=== PATIENT | male | born 1970 | race Caucasian/White ===

== ENCOUNTER 2016-07-21 07:14 | Inpatient (IN) | payer OTHER ==
[~2016-07-21] VITALS: Ht 180.3 cm; Wt 118.2 kg
[~2016-07-21 07:14] MED LIST: COZ100 PO; GLIP5TAB2 PO; HYG25 PO
[2016-07-21 07:20] VITALS: BP 172/115; PULSE 101; RESP 18; O2SAT 98
--- NOTE | 2016-07-21 07:40 | ED.REPORT ---
HPI-Abd Pain M Under 40 Date of Service July 21, 2016 ED Provider: Mami Seaman MD The patient is a 45 year old male w/ a hx of DM, chronic back pain, peripheral neuropathy, high cholesterol, high blood pressure, who presents to the ED accompanied by his due to diffuse, band-like, upper abdominal pain onset last night. He has been urinating normally but has not had a bowel movement or passed gas for the past 5 days. Associated sx include lower back pain and stomach distension. Last night, the pt went up to go to the bathroom and began to vomit excessively. He denies cough and fever. The pt has an open LNI Case and has had 4 back surgeries. Scheduled to meet with neurosurgeon on the to discuss another back surgery. Nursing Notes Stated Complaint: BACK PAIN/NAUSEA Chief Complaint: Male Abdominal Pain Nursing Notes Reviewed: Yes Allergies: Coded Allergies: No Known Allergies (Unverified , 05/12/13) Scheduled Atorvastatin (Lipitor) 20 Mg Tablet 20 MG PO DAILY Gabapentin (Gabapentin) 600 Mg Tablet 600 MG PO QID Glimepiride (Glimepiride) 2 Mg Tablet 2 MG PO BID Losartan Potassium (Losartan Potassium) 50 Mg Tablet 75 MG PO DAILY Nabumetone (Nabumetone) 500 Mg Tablet 500 MG PO BID Nortriptyline (Nortriptyline) 50 Mg Capsule 50 MG PO HS Scheduled PRN Diazepam (Diazepam) 5 Mg Tablet 5 MG PO q4-6HR PRN PRN For Anxiety Hydrocodone-Acetaminophen 10-325 mg (Hydrocodone-Acetaminophen 10-325 mg) 1 Each Tablet 1 TABLET PO q5HR PRN PRN For Pain General Time Seen by MD: 07:37 Chief Complaint Abdominal pain Hx Obtained From: Patient, Spouse Arrived By: Walk-in Sudden in Onset?: Yes Onset Occurred: 5 - 8 hours ago Symptom Duration: Since onset Location: : Abdomen lower: Abdomen upper Quality: Painful Severity: Current: Moderate Recent Healthcare: No recent doctor visit, No recent hospitalization Similar Sx Previous: No Past Medical History Past Medical History high cholesterol high blood pressure peripheral neuropathy chronic back pain Reports: Diabetes mellitus, Hypertension Past Surgical History 4 back surgeries Smoking History Current Every Day Smoker ("vaporizes") Social History Alcohol Use: 1-3 per day Other Social History: Good social support, , Local resident Ambulatory Status Independent Review of Systems Constitutional: Denies: Fever Respiratory: Denies: Non-productive cough GI: Reports: Abdominal pain, Constipation, Vomiting Male: Denies Urination decreased, Denies Urination increased Musculoskeletal: Reports: Back pain, Denies: Extremity swelling Complete sys rev & neg: except as marked. Physical Exam Initial Vital Signs Vital Signs (First) Date Time Temp Pulse Resp B/P Pulse Ox O2 Delivery O2 Flow Rate FiO2 07/21/16 07:20 37.1 101 18 172/115 98 07/21/16 10:36 Room Air Initial VS: Reviewed Head / Eyes: Atraumatic, Normocephalic, PERRL Neck: Supple, Non-tender Skin: Warm, Dry Neurologic: Alert, Oriented General/Constitutional: Awake, Alert, Cooperative acute distress smells of alcohol Respiratory / Chest: Atraumatic, Breath sounds NL, Breath sounds = bilat, No respiratory distress Cardiovascular: No gallop, No murmurs, No rubs Heart Rate / Rhythm: Positive: Tachycardia Abdomen: No guarding, No rebound Tenderness/Guarding/Rebound: Positive: Tender diffuse distended belly increased tenderness over both upper quadrants Back: Atraumatic, Inspection NL, Full range of motion Lower Extremity / Pelvis / MS: No edema lower extremities well profused Interpretation & Diagnostics Lab Results Interpretation Result Diagram: 07/21/16 0850 07/21/16 0850 Test 07/21/16 08:50 07/21/16 12:25 White Blood Count 14.2th/mm3 (3.8-10.1) Red Blood Count 4.87mil/mm3 (4.40-5.80) Hemoglobin 16.9g/dL (13.8-17.2) Hematocrit 46.0% (41.0-50.0) Mean Corpuscular Volume 94.5fL (81-100) Mean Corpuscular Hemoglobin 34.7pg (27.0-35.0) Mean Corpuscular Hemoglobin Concent 36.7% (32.0-37.0) Red Cell Distribution Width 12.0% (12.3-15.4) Platelet Count 127bil/L (150-400) Neutrophils (%) (Auto) 84.2% (40-74) Lymphocytes (%) (Auto) 6.1% (14-46) Monocytes (%) (Auto) 9.0% (4-12) Eosinophils (%) (Auto) 0.1% (0-5) Basophils (%) (Auto) 0.3% (0-3) Sodium Level 123mEq/L (134-144) Potassium Level 4.1mEq/L (3.5-5.2) Chloride Level 85mEq/L (97-108) Carbon Dioxide Level 22mmol/L (18-29) Blood Urea Nitrogen 10mg/dL (6-24) Creatinine 0.63mg/dL (0.76-1.27) Estimat Glomerular Filtration Rate 148mL/min (>59) Glucose Level 151mg/dL (60-99) Lactic Acid Level 3.3mmol/L (0.4-2.0) Calcium Level 7.7mg/dL (8.5-10.1) Magnesium Level 1.3mg/dL (1.6-2.6) Total Bilirubin 2.6mg/dL (0.0-1.2) Aspartate Amino Transf (AST/SGOT) 170U/L (0-50) Alanine Aminotransferase (ALT/SGPT) 82U/L (0-44) Alkaline Phosphatase 79U/L (25-150) Total Protein 6.0g/dL (6.4-8.4) Albumin 3.2g/dL (3.4-5.0) Lipase 361U/L (13-60) Alcohols 18mg/dL (0-10) Urine Color Yellow (YELLOW) Urine Appearance Clear (CLEAR,HAZY) Urine pH 5.5 (5.0-8.0) Urine Specific [place] 1.010 (1.003-1.035) Urine Protein 30mg/dL (NEG,TRACE) Urine Glucose (UA) Negativemg/dL (NEGATIVE) Urine Ketones Negativemg/dL (NEGATIVE) Urine Occult Blood Trace (NEGATIVE) Urine Nitrite Negative (NEGATIVE) Urine Bilirubin Negative (NEGATIVE) Urine Urobilinogen Normalmg/dL (NORMAL) Urine Leukocyte Esterase Negative (NEGATIVE) Urine RBC 0-2/hpf (0-2) Urine WBC 0-5/hpf (0-5) Urine Epithelial Cells Occasional/hpf (NONE-MOD) Urine Crystals None seen (NONE SEEN) Urine Bacteria None/hpf (NONE-FEW) Urine Hyaline Casts None/lpf (NONE) Urine Granular Casts None seen (NONE SEEN) Urine Waxy Casts None seen (NONE SEEN) Urine Red Blood Cell Casts None seen (NONE SEEN) Urine White Blood Cell Casts None seen (NONE SEEN) Urine Mucus None seen (None Seen) Urine Trichomonas None seen (NONE SEEN) Urine Yeast None (NONE SEEN) Urinalysis Comment None Urine Culture Reflexed Not indicated ECG Interpretation Time: 08:01 Interpreted by: ED physician Normal ECG Interpretation: Normal ECG w/ rate of... (98) X-Ray Abdominal Interpretation IMPRESSION: 1. Nonspecific bowel gas pattern with a paucity of small bowel gas and distended segment of descending colon. If clinical concern persists, recommend further evaluation with CT. Dictated by: Meir Soto M.D. on 07/21/2016 at 9:29 Approved by: Meir Soto M.D. on 07/21/2016 at 9:47 Study: 2 view Interpretation / Wet Read by: Interpret - Radiologist CT Abd / Pelvis Interpretation IMPRESSION: Acute pancreatitis. Recommend clinical/laboratory correlation, and consider followup CT after treatment to exclude the possibility of underlying pancreatic mass, as clinically warranted. No evidence of abscess seen. Hepatic steatosis. Presumed left renal cyst, technically non-specific. Dictated by: Ced Bean M.D. on 07/21/2016 at 10:25 Approved by: Ced Bean M.D. on 07/21/2016 at 10:31 Study type: Abdominal CT no contrast Interpretation / Wet Read by: Interpret - Radiologist Re-Eval/Medical Decision Med Decision/Clinical Course Presents with a week of increasing abdominal pain. Labs and CT scan CONSISTENT with acute pancreatitis. No evidence of gallstones or obstruction. Most likely etiology is his alcohol use. He states that he does drink alcohol and the form of beer and wine daily. He does not need a morning drink. On reexam at noon he is diaphoretic but tremulous likely will have some difficulty with alcohol withdrawal. Discussed with him the need to avoid alcohol to avoid recurrent pancreatitis and he seemed amenable to options and help. Inpatient chemical dependency counselor consultation may be very appropriate. Re-Evaluation/Progress #1: Time of Eval: 09:59 Re-Evaluation/Progress Note: Pt rechecked. Labwork shows evidence of pancreatitis. Re-Evaluation/Progress #2: Time of Eval: 12:07 Re-Evaluation/Progress Note: Pt rechecked. Informed pt of plan for admission due to pancreatitis. He understands and agrees with plan. All questions addressed. Consultation : Referral / Consult Name: Mitchel Weiss DO Consulted With: Hospitalist Call Returned at: 12:58 Fisher Mussel: Agrees with eval, Agrees with plan Note: Case discussed with Dr. Weiss. Counseled Regarding: Diagnosis, Lab results, Need for admission Patient Discharge & Departure Primary Impression: Pancreatitis Chronicity: acute Pancreatitis type: alcohol induced Acute pancreatitis complication: unspecified Qualified Code: K85.20 - Alcohol induced acute pancreatitis without necrosis or infection Additional Impression: Alcoholism Disposition: ADMITTED TO HOSPITAL Discharge Condition All VS Reviewed: Yes Condition: Stable Referrals: Jace Tee MD (PCP) Scribe Attestation Portion of this note were transcribed by Kizzy Liang. I, Dr. Mami Seaman, personally performed the history, physical exam, and medical decision-making: I reviewed and confirmed the accuracy for the information in the transcribed note. Signed by: stephanie Pollock, 07/21/16 1100 copies to: Jace Tee MD, Shawna L MD July 21, 2016 07:40 Kizzy Liang July 21, 2016 07:48
[2016-07-21] MEDS ORDERED: 0.9% Sodium Chloride 1,000 ML IV ONE ×2 (07:51→10:35)
[2016-07-21] MEDS ORDERED: Ondansetron 2 mg/mL 2 mL Inj IVPUSH ONE (07:55)
[2016-07-21] MEDS ORDERED: HYDROmorphone 1 mg/mL Inj IVPUSH ONE (07:55)
[2016-07-21] MEDS ORDERED: Ondansetron 2 mg/mL 2 mL Inj IVPUSH PRN ×2 (07:55→13:40)
[2016-07-21 08:59] LABS: Mean Corpuscular Volume 94.5 fL (81-100)
[2016-07-21 09:02] LABS: BASOPHILS % (AUTO) 0.3 % (0-3); EOSINOPHILS % (AUTO) 0.1 % (0-5); Mean Corpuscular Hemoglobin 34.7 pg (27.0-35.0); NEUTROPHILS % (AUTO) 84.2 % (40-74); Platelet Count 127 bil/L (150-400)
[2016-07-21 09:23] LABS: Magnesium 1.3 mg/dL (1.6-2.6)
--- NOTE | 2016-07-21 09:48 | DRSVH ---
PROCEDURE: X-RAY ACUTE ABDOMINAL SERIES ([id number]) INDICATIONS: severe abdominal pain TECHNIQUE: One view chest and two views of the abdomen were acquired. COMPARISON: None. FINDINGS: Surgical changes and devices: None. Chest: Lungs are clear. Heart size is normal. No pleural effusions. No pneumoperitoneum. Abdomen: Bowel gas pattern demonstrates a paucity of small bowel gas. There is mild segmental gaseo us distention in the descending colon. No bowel air-fluid levels. No suspicious calcifications. Bones: No suspicious bony lesions. IMPRESSION: 1. Nonspecific bowel gas pattern with a paucity of small bowel gas and distended segment of descendi ng colon. If clinical concern persists, recommend further evaluation with CT. Dictated by: Meir Soto M.D. on 07/21/2016 at 9:29 Approved by: Meir Soto M.D. on 07/21/2016 at 9:47
[2016-07-21] MEDS ORDERED: Piperacillin-Tazo 3.375 Gm Inj 3.375 GM in Dextrose 5% Minibag Plus 50 ML IV ONE (09:50)
[2016-07-21] MEDS: HYDROmorphone 1 mg/mL Inj IVPUSH PRN ×2 (10:10→12:38)
--- NOTE | 2016-07-21 10:32 | DRSVH ---
PROCEDURE: CT ABDOMEN AND PELVIS WITH CONTRAST ([id number]) INDICATIONS: pancreatitis, distended belly TECHNIQUE: After the administration of intravenous contrast, 5 mm thick sections acquired from the diaphragm to the symphysis. 5 mm coronal and sagittal reformats were acquired. For radiation dose reduction, the following was used: automated exposure control, adjustment of mA and/or kV according to patient siz e. COMPARISON: None. FINDINGS: Image quality: Excellent. ABDOMEN: Lung bases: Lung bases are clear. Heart size is normal. Solid organs: There is hepatic steatosis, otherwise liver and spleen are normal in size and enhanceme nt. Gallbladder grossly unremarkable. Biliary system is non dilated. There is extensive peripancre atic inflammatory stranding surrounding the head and body of the pancreas. No focal fluid collection or abscess is seen. Heterogeneity of the pancreatic head and uncinate process, which is poorly define d. Small presumed reactive subcentimeter portal caval lymph node. No adrenal nodules. Kidneys demonstrate normal size and enhancement, without hydronephrosis. Nonsp ecific subcentimeter left posterior renal cortical hypodense lesion possibly a cyst although too smal l to characterize definitively Peritoneum and bowel: Bowel loops demonstrate normal wall thickness and caliber. No free fluid or a ir. Normal appendix. Nodes and vessels: No retroperitoneal or mesenteric adenopathy by size criteria. Aorta and inferior vena cava are normal in size. Miscellaneous: No ventral hernias. PELVIS: Genitourinary: Bladder wall thickness is normal. Miscellaneous: No inguinal hernias or adenopathy. Bones: No suspicious bony lesions. No vertebral body compression fractures. IMPRESSION: Acute pancreatitis. Recommend clinical/laboratory correlation, and consider followup CT after treatme nt to exclude the possibility of underlying pancreatic mass, as clinically warranted. No evidence of abscess seen. Hepatic steatosis. Presumed left renal cyst, technically non-specific. Dictated by: Ced Bean M.D. on 07/21/2016 at 10:25 Approved by: Ced Bean M.D. on 07/21/2016 at 10:31
[2016-07-21 10:36] VITALS: BP 165/118; PULSE 113; RESP 20; O2SAT 94
[2016-07-21 12:25] VITALS: BP 144/95; PULSE 118; RESP 14; O2SAT 93
[2016-07-21 13:06] LABS: APPEARANCE,URINE CLEAR (CLEAR,HAZY); COLOR,URINE YELLOW (YELLOW); OCCULT BLOOD,URINE TRACE (NEGATIVE); PH,URINE 5.5 (5.0-8.0); UROBILINOGEN,URINE NORMAL (NORMAL)
[2016-07-21] MEDS ORDERED: NORT50CA PO (13:30)
[2016-07-21] MEDS ORDERED: LOSA50TA37 PO (13:30)
[2016-07-21] MEDS ORDERED: DIAZ5TAB3 PO (13:30)
[2016-07-21] MEDS ORDERED: NABU500T PO (13:30)
[2016-07-21] MEDS ORDERED: HYDR-3740 PO (13:30)
[2016-07-21] MEDS ORDERED: GABA600T2 PO (13:30)
[2016-07-21] MEDS ORDERED: GLIM2TAB2 PO (13:30)
[2016-07-21] MEDS ORDERED: ATOR20TA PO (13:30)
[2016-07-21] MEDS ORDERED: Polyethylene Glycol (PEG) 17 Gm Powder PO PRN (13:40)
[2016-07-21] MEDS ORDERED: Alum-Mag Hydrox-Simeth 30 mL Suspension PO PRN (13:40)
--- NOTE | 2016-07-21 13:55 | PCM.HPMED ---
Subjective Date of Service July 21, 2016 Primary Provider: Admitting Physician: Primary Care Physician: Jace Tee MD Attending Physician: Admit Status: From the Emergency Department Chief Complaint: n/v/abdom pain/back pain History of Present Illness: 45 yo male wiht a sig hx of DM, chronic back pain, HLP, HTN, peripheral neuropathy who p/t ED with adominal pain, n, and vomiting - described as band like across abdomen that began last night. States he had progressive decreased appetite and fatigue over last couple weeks. Believes he also had abdominal pain for last few weeks but it was mixed in with his chronic low back pain - for which she had 4 back surgeries as noted below . Denies f/c/diarrhea/change in diet or GERD/gastritis. no urinary sx, pt does drink reportedly for - 5 drinks/day. Does report a previous history of alcohol dependence for which he quit for approximate 4 years in the past. Current drinking situation has been worsened by the fact that he is home most of the day on disability. Patient also takes diazepam and did not know he was not supposed to drink with his medications well. Denies illicit drug use denies cp/sob. no reported BM x 5 days. pain has been noted in his back as well which has been an ongoing issue that has led to 4 back sx and an ongoing L&I case. a CT in the ER revealed pancreatitis and the pt was treated for his pain and hydrated. Review of Systems: complete ROS unremarkable unless stated in HPI Allergies Coded Allergies: No Known Allergies (Unverified , 05/12/13) Home Medications Glimepiride 2 mg Gabapentin 600 mg 4 times daily Hydrocodone acetaminophen 10-325 mg every 8 hours as needed Nabumetone 500 mg twice daily Diazepam 5 mg every 4-6 hours as needed Nortriptyline 50 mg every evening Losartan 75 mg daily Atorvastatin 20 mg each evening PMH high cholesterol high blood pressure peripheral neuropathy chronic back pain Reports: Diabetes mellitus, Hypertension Surgical History 4 back surgeries R knee sx Family History Paternal grandfather with diabetes Maternal grandfather with cardiomyopathy Social History Hx Alcohol Use: Yes Alcoholic Drinks Per Day: COUPLE GLASSES OF WINE DAY Hx Substance Use: No Smoking Status: Current Every Day Smoker ("vaporizes") Exam Vital Signs Vital Sign - Last Date Time Temp Pulse Resp B/P Pulse Ox O2 Delivery O2 Flow Rate FiO2 07/21/16 12:25 118 14 144/95 93 Room Air 07/21/16 07:20 37.1 Exam Gen.: No acute distress, alert and oriented, lying lateral recumbent, obese HEENT: Normocephalic/atraumatic, pupils equal round react to light and accommodation,EOMI, Anicteric sclera, No mucosal ulcerations Neck: No JVD, lymphadenopathy, no thyromegaly Cardiovascular: No rubs clicks murmurs or gallops, regular and tachycardic Respiratory: Clear to auscultation bilaterally no wheezes rales or rhonchi, good historian effort GI: Distended, tender diffusely, mild guarding, no masses Extremities: No clubbing cyanosis or edema, warm, sensation intact Neurologic, muscle strength 5 out of 5 in upper and lower extremities bilaterally, creatinine nerves II-12 grossly intact, DTRs 2+ at patellar and brachial radialis and bicipital, sensation intact Psych: Mood appropriate, affect appropriate, no tangential thought or speech Lab and Diagnostics Result Diagram: 07/21/16 0850 07/21/16 0850 X-Rays, CTs and MRIs CT abdomen PROCEDURE: CT ABDOMEN AND PELVIS WITH CONTRAST ([id number]) INDICATIONS: pancreatitis, distended belly TECHNIQUE: After the administration of intravenous contrast, 5 mm thick sections acquired from the diaphragm to the symphysis. 5 mm coronal and sagittal reformats were acquired. For radiation dose reduction, the following was used: automated exposure control, adjustment of mA and/or kV according to patient size. COMPARISON: None. FINDINGS: Image quality: Excellent. ABDOMEN: Lung bases: Lung bases are clear. Heart size is normal. Solid organs: There is hepatic steatosis, otherwise liver and spleen are normal in size and enhancement. Gallbladder grossly unremarkable. Biliary system is non dilated. There is extensive peripancreatic inflammatory stranding surrounding the head and body of the pancreas. No focal fluid collection or abscess is seen. Heterogeneity of the pancreatic head and uncinate process, which is poorly defined. Small presumed reactive subcentimeter portal caval lymph node. No adrenal nodules. Kidneys demonstrate normal size and enhancement, without hydronephrosis. Nonspecific subcentimeter left posterior renal cortical hypodense lesion possibly a cyst although too small to characterize definitively Peritoneum and bowel: Bowel loops demonstrate normal wall thickness and caliber. No free fluid or air. Normal appendix. Nodes and vessels: No retroperitoneal or mesenteric adenopathy by size criteria. Aorta and inferior vena cava are normal in size. Miscellaneous: No ventral hernias. PELVIS: Genitourinary: Bladder wall thickness is normal. Miscellaneous: No inguinal hernias or adenopathy. Bones: No suspicious bony lesions. No vertebral body compression fractures. IMPRESSION: Acute pancreatitis. Recommend clinical/laboratory correlation, and consider followup CT after treatment to exclude the possibility of underlying pancreatic mass, as clinically warranted. No evidence of abscess seen. Hepatic steatosis. Presumed left renal cyst, technically non-specific. Dictated by: Ced Bean M.D. on 07/21/2016 at 10:25 Assessment & Plan 45-year-old male with a significant history of alcoholism, diabetes, hypertension and chronic low back pain presenting with nausea, vomiting andabdominal painfound to haveacute pancreatitis on CT imaging Acute pancreatitis, POA -Aggressive IV fluid hydration, clinically patient is still intravascularly depleted after receiving 2 L in the ER -Pain control with morphine IV 2 mg every 2 when necessary with norco PRN, Toradol 30 mg every 8 PRN -Monitor urine output, bowel regimen with MiraLAX when necessaryand senna scheduled -Monitor labs, daily -Social work consult for alcoholism resources -NPO Hyponatremia, present on admission - likely secondary to decreased intake and potomania/alcoholism -Repeat sodium after IV fluids, 2 L RV given in the ER. -IV fluids at 200 per hour for 24 hours Elevated LFTs, present on admission -Like secondary to alcohol use including acute hypomagnesemia which will be replaced Chronic back pain status post 4 surgeries -Continue home regimen of diazepam 5 mg every 4-6 hours -Continue with pain regimen as above including morphine and Toradol -Continue gabapentin 600 mg 4 times daily - Oxygen saturation should be monitored when patient is taking opioids Hypertension/hyperlipidemia -Continue home regimen of losartan 75 mg daily - Continue home regimen of atorvastatin 20 mg each evening Diabetes mellitus -Hold home regimen of Clement Bright 2 mg for now -Sliding scale, hypoglycemic protocol, every before meals at bedtime sugar checks -NPO for now in patient admission, given patient will be here for greater than 2 midnights Pain Evaluation: Adequate Pain Control GI Prophylaxis: Proton Pump Inhibitor VTE Prophylaxis: Sub-Q Enoxaparin Resuscitation Status: CPR: Attempt Resuscitation Time spent 45 minutes spent with evaluation and managementconcluding admission, greater than 50% of time was spent in wecu-uw-shoa counseling Mitchel Weiss DO July 21, 2016 12:58
[2016-07-21] MEDS: 0.9% Sodium Chloride 1,000 ML IV SCH ×2 (14:31→20:44)
--- NOTE | 2016-07-21 14:50 | NUR ---
New admit Patient arrived at [facility] approx 1430. BP 132/91, pulse 130, Temp 100.0, Oxygen 95% RA. Paged Dr Perez and new orders," PO medications Ok with sips of water, Blood cultures if not done in the ER, blood cultures if fever spikes more than 100.4, Telemetry on, start CIWA. Hospitalist aware that pulse 130 and temp 100.0. pain 5/10 abdomen and back. PRN pain management for pain.
[2016-07-21 14:55] VITALS: BP 132/91; PULSE 130; RESP 16; O2SAT 95
[2016-07-21 15:05] VITALS: PULSE 131
--- NOTE | 2016-07-21 16:49 | NUR ---
Pain Morphine given 1mg for pain 5/10 to abdomen and back pain with Ineffective pain control. per patient Dilaudid has worked better in the ER. Rajeev paged Dr. Weiss and awaiting response back.
[2016-07-21] MEDS: HYDROcodone-APAP 5-325 mg Tablet PO PRN (17:32)
--- NOTE | 2016-07-21 17:39 | NUR ---
Abdomen/back pain PRN PO Hydrocodone given as ordered. will reassess pain. Patient requires effective pain management. paged Dr. Weiss, awaiting call back.
[2016-07-21] MEDS ORDERED: [UNRECOGNIZED DRUG - OTHER] IV ONE (17:50)
[2016-07-21] MEDS ORDERED: MAGNESIUM SULF IV ONE (17:50)
[2016-07-21] MEDS ORDERED: Glucose 40% Oral Gel 15 Gm Tube PO PRN (17:50)
[2016-07-21] MEDS: Insulin LISPRO 300 Unit/3 mL Inj SUBQ SCH ×2 (18:23→21:04)
--- NOTE | 2016-07-21 18:33 | NUR ---
New orders New orders Ketoroloc for pain. PRN given as ordered with effective pain control. patient able to rest comfortably.
--- NOTE | 2016-07-21 18:49 | NUR ---
patient received Scheduled Senna for constipation. Addendum: 07/21/16 at 1851 by MOODY ROSSI RN Amended: Links added.
--- NOTE | 2016-07-21 18:50 | NUR ---
NPO r/t Acute pancreatitis. Addendum: 07/21/16 at 1851 by MOODY ROSSI RN Amended: Links added.
[2016-07-21 20:00] VITALS: BP 137/85; PULSE 120; RESP 17; O2SAT 96
[2016-07-21] MEDS: Famotidine Inj 20 MG in IV Premix 1 EACH IV SCH (20:44)
[2016-07-22] VITALS (8 sets, daily range): BP systolic 136–156; BP diastolic 79–96; PULSE 85–122; RESP 16–20; O2SAT 95–99
[2016-07-22] MEDS: 0.9% Sodium Chloride 1,000 ML IV SCH ×3 (00:44→22:17)
--- NOTE | 2016-07-22 04:20 | NUR ---
Pain/Nausea/Constipation/Fever Pt. Alert and responsive, administered prn pain and nausea medications upon pt. request with effective results, pt. received scheduled senna for constipation and had a large BM this shift, vitals stable, afebrile, latest Temp. @ 430 am was 36.8, no tremors noted, ambulated independently in with steady gait, uses call light appropriately, hourly checks, will continue to monitor condition status and follow current plan of care.
[2016-07-22] MEDS: HYDROcodone-APAP 5-325 mg Tablet PO PRN ×3 (05:35→16:58)
[2016-07-22 06:47] LABS: BASOPHILS % (AUTO) 0.1 % (0-3); EOSINOPHILS % (AUTO) 0.3 % (0-5); MONOCYTES % (AUTO) 7.7 % (4-12); Mean Corpuscular Hemoglobin 34.2 pg (27.0-35.0); Mean Corpuscular Volume 97.1 fL (81-100); NEUTROPHILS % (AUTO) 86.9 % (40-74); Platelet Count 105 bil/L (150-400)
[2016-07-22 07:37] LABS: Magnesium 2.1 mg/dL (1.6-2.6)
[2016-07-22] MEDS: Famotidine Inj 20 MG in IV Premix 1 EACH IV SCH ×2 (09:07→19:50)
[2016-07-22] MEDS: Insulin LISPRO 300 Unit/3 mL Inj SUBQ SCH ×4 (09:11→22:00)
--- NOTE | 2016-07-22 14:28 | PCM.PNMED ---
Subjective Date of Service July 22, 2016 Subjective He is seen today to followup the Alcoholic Pancreatitis. He is feeling much better but is spiking a fever up to 38.3 this morning. He is hungry but is easily persuaded to rest his pancreas until tomorrow. As he puts it, "I have reserve." The Na continues low at 123. The abdominal pain is improved. Exam Vital Signs Vital Sign - Last Date Time Temp Pulse Resp B/P Pulse Ox O2 Delivery O2 Flow Rate FiO2 07/22/16 11:51 38.3 106 20 149/96 96 Room Air Intake and Output 07/21/16 07/21/16 07/22/16 Cumulative From/Thru 15:00 23:00 07:00 07/21/16 07:20 - 07/22/16 05:42 Intake Total 2000 ml 739 ml 2097 ml 4836 ml Balance 2000 ml 739 ml 2097 ml 4836 ml Intake Oral 30 ml 30 ml IV Total 2000 ml 739 ml 2067 ml 4806 ml # Voids 5 5 # Bowel Movements 1 1 Exam Alert and oriented X 3 Heart: RRR without murmur Lungs: CTAB Ext: No ankle edema Abdomen: Soft, bowel sounds normal, mild diffuse tenderness. IVs and Medications Medications Reviewed: Medications were reviewed in detail Lab and Diagnostics Result Diagram: 07/22/1661407/22/16614 X-Rays, CTs and MRIs CT abdomen PROCEDURE: CT ABDOMEN AND PELVIS WITH CONTRAST (PNL-7102) INDICATIONS: pancreatitis, distended belly TECHNIQUE: After the administration of intravenous contrast, 5 mm thick sections acquired from the diaphragm to the symphysis. 5 mm coronal and sagittal reformats were acquired. For radiation dose reduction, the following was used: automated exposure control, adjustment of mA and/or kV according to patient size. COMPARISON: None. FINDINGS: Image quality: Excellent. ABDOMEN: Lung bases: Lung bases are clear. Heart size is normal. Solid organs: There is hepatic steatosis, otherwise liver and spleen are normal in size and enhancement. Gallbladder grossly unremarkable. Biliary system is non dilated. There is extensive peripancreatic inflammatory stranding surrounding the head and body of the pancreas. No focal fluid collection or abscess is seen. Heterogeneity of the pancreatic head and uncinate process, which is poorly defined. Small presumed reactive subcentimeter portal caval lymph node. No adrenal nodules. Kidneys demonstrate normal size and enhancement, without hydronephrosis. Nonspecific subcentimeter left posterior renal cortical hypodense lesion possibly a cyst although too small to characterize definitively Peritoneum and bowel: Bowel loops demonstrate normal wall thickness and caliber. No free fluid or air. Normal appendix. Nodes and vessels: No retroperitoneal or mesenteric adenopathy by size criteria. Aorta and inferior vena cava are normal in size. Miscellaneous: No ventral hernias. PELVIS: Genitourinary: Bladder wall thickness is normal. Miscellaneous: No inguinal hernias or adenopathy. Bones: No suspicious bony lesions. No vertebral body compression fractures. IMPRESSION: Acute pancreatitis. Recommend clinical/laboratory correlation, and consider followup CT after treatment to exclude the possibility of underlying pancreatic mass, as clinically warranted. No evidence of abscess seen. Hepatic steatosis. Presumed left renal cyst, technically non-specific. Dictated by: Ced Bean M.D. on 07/21/2016 at 10:25 Assessment & Plan 45-year-old male with a significant history of alcoholism, diabetes, hypertension and chronic low back pain presenting with nausea, vomiting andabdominal painfound to haveacute pancreatitis on CT imaging Acute pancreatitis, POA -Continue IVF at maintenance rates. -Pain control with morphine IV 2 mg every 2 when necessary with norco PRN, Toradol 30 mg every 8 PRN -Monitor urine output, bowel regimen with MiraLAX when necessaryand senna scheduled -Monitor labs, daily -Social work consult for alcoholism resources -NPO Hyponatremia, present on admission - likely secondary to decreased intake and potomania/alcoholism -Continue NS IVF and follow Na levels Elevated LFTs, present on admission -Like secondary to alcohol use including acute hypomagnesemia which will be replaced Chronic back pain status post 4 surgeries -Continue home regimen of diazepam 5 mg every 4-6 hours -Continue with pain regimen as above including morphine and Toradol -Continue gabapentin 600 mg 4 times daily - Oxygen saturation should be monitored when patient is taking opioids Hypertension/hyperlipidemia -Continue home regimen of losartan 75 mg daily - Continue home regimen of atorvastatin 20 mg each evening Diabetes mellitus -Hold home regimen of Clement Bright 2 mg for now -Sliding scale, hypoglycemic protocol, every before meals at bedtime sugar checks -NPO for now Watch fevers, WBC and symptoms closely. Consult GI if improving trends do not progress as expected. Brannon Major MD GI Prophylaxis: Proton Pump Inhibitor VTE Prophylaxis: Sub-Q Enoxaparin Resuscitation Status: CPR: Attempt Resuscitation Lucille Major MD July 22, 2016 11:56
--- NOTE | 2016-07-22 15:40 | NUR ---
Social Work Note: Screen Note Data& Assessment: EMR reviewed. Patient is a 45 year old male admitted on 07/21/16 for Acute pancreatitis. Pt has [employer] and [facility] insurance for insurance coverage and sees Jace Tee MD for primary care. Pt lives with family and is independent at baseline. Pt is currently independent at hospital. No discharge needs identified at this time. SW to continue to follow if any needs arise. Plan: Anticipated discharge home via POV when medically ready. No discharge needs identified at this time. SW to continue to follow if any needs arise. Mitzy Major, GRACIELA, ACM
--- NOTE | 2016-07-22 17:44 | NUR ---
Pain, mobility, temp Pt c/o pain starting on the right side of the abdomen banding across the top to the left side. As the shift progressed state felt some air bubbles moving. Reports pain much better in the after. Toradol and norco effective for pain. States morphine helpful for a short while then causes a headache. Ice pack provided per request. Pt amb in [facility] x3 today indep, steady on feet. 1144 had temp 38.3, Dr Major notified, no new orders.
[2016-07-23 02:12] VITALS: BP 138/79; PULSE 96; RESP 18; O2SAT 95
[2016-07-23] MEDS: HYDROcodone-APAP 5-325 mg Tablet PO PRN (03:21)
--- NOTE | 2016-07-23 04:01 | NUR ---
Shift Note Pt. pain managed by prn norco and ketorolac, tolerated well. Denies CP and SOB, On telemetry ST 103, ambulated ind. in rm, uses call light appropriately, Pt. temp. has been closely monitored, highest temp of 38.0, latest temp @ 4am 37.5, MD aware of pt. temp., given ice pack upon request, denies HODGES/dizziness/N/V at this time, will continue to monitor vitals and pain management needs.
[2016-07-23] MEDS: 0.9% Sodium Chloride 1,000 ML IV SCH (05:14)
[2016-07-23 05:23] VITALS: PULSE 96
[2016-07-23 05:32] VITALS: BP 150/89; PULSE 101; RESP 18; O2SAT 95
[2016-07-23 07:47] VITALS: PULSE 102
[2016-07-23] MEDS: Insulin LISPRO 300 Unit/3 mL Inj SUBQ SCH ×2 (08:00→12:20)
[2016-07-23 08:55] LABS: Mean Corpuscular Volume 97.2 fL (81-100)
[2016-07-23 08:56] LABS: BASOPHILS % (AUTO) 0.2 % (0-3); EOSINOPHILS % (AUTO) 0.8 % (0-5); Mean Corpuscular Hemoglobin 33.2 pg (27.0-35.0); NEUTROPHILS % (AUTO) 83.2 % (40-74); Platelet Count 82 bil/L (150-400)
[2016-07-23 08:57] VITALS: BP 152/98; PULSE 84; RESP 15; O2SAT 97
[2016-07-23] MEDS: Famotidine Inj 20 MG in IV Premix 1 EACH IV SCH (09:06)
--- NOTE | 2016-07-23 09:27 | PCM.PNMED ---
Subjective Date of Service July 23, 2016 Subjective He is feeling better, he is less abdominal pain. No nausea, he is starving. No vomiting. No flatus or bowel movement. His abdomen was bloated overnight but now is not. He denies any chest pain, cough or shortness of breath. No withdrawal symptoms. No overnight events Exam Vital Signs Vital Sign - Last Date Time Temp Pulse Resp B/P Pulse Ox O2 Delivery O2 Flow Rate FiO2 07/23/16 08:57 37.2 84 15 152/98 97 Room Air Intake and Output 07/22/16 07/22/16 07/23/16 Cumulative From/Thru 15:00 23:00 07:00 07/21/16 07:20 - 07/23/16 05:32 Intake Total 2037 ml 1193 ml 8066 ml Balance 2037 ml 1193 ml 8066 ml Intake Oral 200 ml 30 ml 260 ml IV Total 1837 ml 1163 ml 7806 ml # Voids 3 3 11 # Bowel Movements 0 0 1 Exam Alert and oriented -3, no distress. Fluent speech Anicteric sclera. Lungs are clear with normal rate and effort Heart is regular without murmur gallop or rub Abdomen soft nontender, flat. No tenderness to palpation. Extremities are free of edema. Skin is free of rash or lesions. IVs and Medications Medications Reviewed: Medications were reviewed in detail Lab and Diagnostics Result Diagram: 07/23/1644907/23/16 045 X-Rays, CTs and MRIs CT abdomen PROCEDURE: CT ABDOMEN AND PELVIS WITH CONTRAST ([id number]) INDICATIONS: pancreatitis, distended belly TECHNIQUE: After the administration of intravenous contrast, 5 mm thick sections acquired from the diaphragm to the symphysis. 5 mm coronal and sagittal reformats were acquired. For radiation dose reduction, the following was used: automated exposure control, adjustment of mA and/or kV according to patient size. COMPARISON: None. FINDINGS: Image quality: Excellent. ABDOMEN: Lung bases: Lung bases are clear. Heart size is normal. Solid organs: There is hepatic steatosis, otherwise liver and spleen are normal in size and enhancement. Gallbladder grossly unremarkable. Biliary system is non dilated. There is extensive peripancreatic inflammatory stranding surrounding the head and body of the pancreas. No focal fluid collection or abscess is seen. Heterogeneity of the pancreatic head and uncinate process, which is poorly defined. Small presumed reactive subcentimeter portal caval lymph node. No adrenal nodules. Kidneys demonstrate normal size and enhancement, without hydronephrosis. Nonspecific subcentimeter left posterior renal cortical hypodense lesion possibly a cyst although too small to characterize definitively Peritoneum and bowel: Bowel loops demonstrate normal wall thickness and caliber. No free fluid or air. Normal appendix. Nodes and vessels: No retroperitoneal or mesenteric adenopathy by size criteria. Aorta and inferior vena cava are normal in size. Miscellaneous: No ventral hernias. PELVIS: Genitourinary: Bladder wall thickness is normal. Miscellaneous: No inguinal hernias or adenopathy. Bones: No suspicious bony lesions. No vertebral body compression fractures. IMPRESSION: Acute pancreatitis. Recommend clinical/laboratory correlation, and consider followup CT after treatment to exclude the possibility of underlying pancreatic mass, as clinically warranted. No evidence of abscess seen. Hepatic steatosis. Presumed left renal cyst, technically non-specific. Dictated by: Ced Bean M.D. on 07/21/2016 at 10:25 Assessment & Plan 45-year-old male with a significant history of alcoholism, diabetes, hypertension and chronic low back pain presenting with nausea, vomiting andabdominal painfound to haveacute pancreatitis on CT imaging #. Acute pancreatitis, POA. Improving. -Continue IVF at maintenance rates. -Pain control with morphine IV 2 mg every 2 when necessary with norco PRN, Toradol 30 mg every 8 PRN -Monitor urine output, bowel regimen with MiraLAX when necessaryand senna scheduled -Monitor labs, daily -Social work consult for alcoholism resources Will give him a full liquid diet and begin to wean IV pain meds. #. Hyponatremia, present on admission improved. DC IV fluids. #. Elevated LFTs, present on admission. Improved. Alcohol induced hepatitis. #. Chronic back pain status post 4 surgeries -Continue home regimen of diazepam 5 mg every 4-6 hours -Continue with pain regimen as above including morphine and Toradol -Continue gabapentin 600 mg 4 times daily - Oxygen saturation should be monitored when patient is taking opioids #. Essential Hypertension/hyperlipidemia. Both chronic, POA. Stable on current medications. -Continue home regimen of losartan 75 mg daily - Continue home regimen of atorvastatin 20 mg each evening #. Diabetes mellitus 2, POA. Stable. -Hold home regimen of Clement Bright 2 mg for now -Sliding scale, hypoglycemic protocol, every before meals at bedtime sugar checks -NPO for now GI Prophylaxis: Proton Pump Inhibitor VTE Prophylaxis: Sub-Q Enoxaparin Resuscitation Status: CPR: Attempt Resuscitation Mauricio Parnell MD July 23, 2016 09:27
--- NOTE | 2016-07-23 12:36 | PCM.DIMED ---
Discharge Instructions Date of Service July 23, 2016 Dates of Hospitalization July 21, 2016 at 13:06 Discharge Diagnosis Discharge Diagnosis #. Acute pancreatitis, POA. Improving. #. Hyponatremia, improved. #. Elevated LFTs, Improved. #. Chronic back pain #. Essential Hypertension #. Diabetes mellitus 2, Diet No restrictions Activity No restrictions Call your provider Fever or Chills, Other (bowel pain, nausea or vomiting.) Patient Instructions Follow-up Provider: Jace Tee MD Follow-up with PCP in: 1 week Mauricio Parnell MD July 23, 2016 12:36
--- NOTE | 2016-07-23 12:38 | PCM.DC.MED ---
Discharge Summary Date of Service July 23, 2016 Dates of Hospitalization Date of Hospital Admission July 21, 2016 at 13:06 Date of Discharge: July 23, 2016 Providers: Admitting Physician: Mitchel Weiss DO Primary Care Physician: Jace Tee MD Attending Physician: Mitchel Weiss DO Diagnosis at Time of Discharge Diagnosis at Time of Discharge #. Acute pancreatitis, POA. Improving. #. Hyponatremia, improved. #. Elevated LFTs, Improved. #. Chronic back pain #. Essential Hypertension #. Diabetes mellitus 2, Consultations Non- Procedures XRay, CTs & MRIs CT abdomen PROCEDURE: CT ABDOMEN AND PELVIS WITH CONTRAST ([id number]) INDICATIONS: pancreatitis, distended belly TECHNIQUE: After the administration of intravenous contrast, 5 mm thick sections acquired from the diaphragm to the symphysis. 5 mm coronal and sagittal reformats were acquired. For radiation dose reduction, the following was used: automated exposure control, adjustment of mA and/or kV according to patient size. COMPARISON: None. FINDINGS: Image quality: Excellent. ABDOMEN: Lung bases: Lung bases are clear. Heart size is normal. Solid organs: There is hepatic steatosis, otherwise liver and spleen are normal in size and enhancement. Gallbladder grossly unremarkable. Biliary system is non dilated. There is extensive peripancreatic inflammatory stranding surrounding the head and body of the pancreas. No focal fluid collection or abscess is seen. Heterogeneity of the pancreatic head and uncinate process, which is poorly defined. Small presumed reactive subcentimeter portal caval lymph node. No adrenal nodules. Kidneys demonstrate normal size and enhancement, without hydronephrosis. Nonspecific subcentimeter left posterior renal cortical hypodense lesion possibly a cyst although too small to characterize definitively Peritoneum and bowel: Bowel loops demonstrate normal wall thickness and caliber. No free fluid or air. Normal appendix. Nodes and vessels: No retroperitoneal or mesenteric adenopathy by size criteria. Aorta and inferior vena cava are normal in size. Miscellaneous: No ventral hernias. PELVIS: Genitourinary: Bladder wall thickness is normal. Miscellaneous: No inguinal hernias or adenopathy. Bones: No suspicious bony lesions. No vertebral body compression fractures. IMPRESSION: Acute pancreatitis. Recommend clinical/laboratory correlation, and consider followup CT after treatment to exclude the possibility of underlying pancreatic mass, as clinically warranted. No evidence of abscess seen. Hepatic steatosis. Presumed left renal cyst, technically non-specific. Dictated by: Ced Bean M.D. on 07/21/2016 at 10:25 Invasive Procedures Non- Brief History 45 yo male wiht a sig hx of DM, chronic back pain, HLP, HTN, peripheral neuropathy who p/t ED with adominal pain, n, and vomiting - described as band like across abdomen that began last night. States he had progressive decreased appetite and fatigue over last couple weeks. Believes he also had abdominal pain for last few weeks but it was mixed in with his chronic low back pain - for which she had 4 back surgeries as noted below . Denies f/c/diarrhea/change in diet or GERD/gastritis. no urinary sx, pt does drink reportedly for - 5 drinks/day. Does report a previous history of alcohol dependence for which he quit for approximate 4 years in the past. Current drinking situation has been worsened by the fact that he is home most of the day on disability. Patient also takes diazepam and did not know he was not supposed to drink with his medications well. Denies illicit drug use denies cp/sob. no reported BM x 5 days. pain has been noted in his back as well which has been an ongoing issue that has led to 4 back sx and an ongoing L&I case. a CT in the ER revealed pancreatitis and the pt was treated for his pain and hydrated. Hospital Course 45-year-old male with a significant history of alcoholism, diabetes, hypertension and chronic low back pain presenting with nausea, vomiting andabdominal painfound to haveacute pancreatitis on CT imaging #. Acute pancreatitis, POA. Improving. -Continue IVF at maintenance rates. -Pain control with morphine IV 2 mg every 2 when necessary with norco PRN, Toradol 30 mg every 8 PRN -Monitor urine output, bowel regimen with MiraLAX when necessaryand senna scheduled -Monitor labs, daily -Social work consult for alcoholism resources Will give him a full liquid diet and begin to wean IV pain meds This improved with bowel rest and a slow diet advanced. The patient was at or near baseline at the time of admit.. #. Hyponatremia, present on admission improved. This improved with IV fluids. Presumed hypovolemic. #. Elevated LFTs, present on admission. Improved. Alcohol induced hepatitis. This also improved with no further intervention. #. Chronic back pain status post 4 surgeries -Continue home regimen of diazepam 5 mg every 4-6 hours #. Essential Hypertension/hyperlipidemia. Both chronic, POA. Stable on current medications. #. Diabetes mellitus 2, POA. Stable. -Hold home regimen of Clement Bright 2 mg for now -Sliding scale, hypoglycemic protocol, every before meals at bedtime sugar checks -NPO for now Exam Vital Signs (Last) Date Time Temp Pulse Resp B/P Pulse Ox O2 Delivery O2 Flow Rate FiO2 07/23/16 08:57 37.2 84 15 152/98 97 Room Air Exam Patient was seen and examined on the day of discharge Test 07/21/16 08:50 07/21/16 12:25 07/22/16 06:15 07/22/16 14:56 Lactic Acid Level 3.3mmol/L (0.4-2.0) Lipase 361U/L (13-60) Alcohols 18mg/dL (0-10) Urine Color Yellow (YELLOW) Urine Appearance Clear (CLEAR,HAZY) Urine pH 5.5 (5.0-8.0) Urine Specific [place] 1.010 (1.003-1.035) Urine Protein 30mg/dL (NEG,TRACE) Urine Glucose (UA) Negativemg/dL (NEGATIVE) Urine Ketones Negativemg/dL (NEGATIVE) Urine Occult Blood Trace (NEGATIVE) Urine Nitrite Negative (NEGATIVE) Urine Bilirubin Negative (NEGATIVE) Urine Urobilinogen Normalmg/dL (NORMAL) Urine Leukocyte Esterase Negative (NEGATIVE) Urine RBC 0-2/hpf (0-2) Urine WBC 0-5/hpf (0-5) Urine Epithelial Cells Occasional/hpf (NONE-MOD) Urine Crystals None seen (NONE SEEN) Urine Bacteria None/hpf (NONE-FEW) Urine Hyaline Casts None/lpf (NONE) Urine Granular Casts None seen (NONE SEEN) Urine Waxy Casts None seen (NONE SEEN) Urine Red Blood Cell Casts None seen (NONE SEEN) Urine White Blood Cell Casts None seen (NONE SEEN) Urine Mucus None seen (None Seen) Urine Trichomonas None seen (NONE SEEN) Urine Yeast None (NONE SEEN) Urinalysis Comment None Urine Culture Reflexed Not indicated Hemoglobin A1c 7.3% (4.8-5.6) Triglycerides Level 3740mg/dL (0-149) Cholesterol Level 519mg/dL (100-199) LDL Cholesterol, Calculated -262.000mg/dL (0-99) VLDL Cholesterol 748.000mg/dL HDL Cholesterol 33mg/dL (>39) Cholesterol/HDL Ratio 15.73 (0.0-4.4) Total Bilirubin 3.8mg/dL (0.0-1.2) Aspartate Amino Transf (AST/SGOT) 68U/L (0-50) Alanine Aminotransferase (ALT/SGPT) 44U/L (0-44) Alkaline Phosphatase 66U/L (25-150) Total Protein 5.5g/dL (6.4-8.4) Albumin 2.8g/dL (3.4-5.0) Test 07/23/16 04:50 White Blood Count 10.7th/mm3 (3.8-10.1) Red Blood Count 3.92mil/mm3 (4.40-5.80) Hemoglobin 13.0g/dL (13.8-17.2) Hematocrit 38.1% (41.0-50.0) Mean Corpuscular Volume 97.2fL (81-100) Mean Corpuscular Hemoglobin 33.2pg (27.0-35.0) Mean Corpuscular Hemoglobin Concent 34.1% (32.0-37.0) Red Cell Distribution Width 12.0% (12.3-15.4) Platelet Count 82bil/L (150-400) Neutrophils (%) (Auto) 83.2% (40-74) Lymphocytes (%) (Auto) 7.4% (14-46) Monocytes (%) (Auto) 8.0% (4-12) Eosinophils (%) (Auto) 0.8% (0-5) Basophils (%) (Auto) 0.2% (0-3) Sodium Level 129mEq/L (134-144) Potassium Level 3.7mEq/L (3.5-5.2) Chloride Level 95mEq/L (97-108) Carbon Dioxide Level 21mmol/L (18-29) Blood Urea Nitrogen 6mg/dL (6-24) Creatinine 0.64mg/dL (0.76-1.27) Estimat Glomerular Filtration Rate 145mL/min (>59) Glucose Level 142mg/dL (60-99) Calcium Level 7.4mg/dL (8.5-10.1) Magnesium Level 2.0mg/dL (1.6-2.6) Discharge Medications Discharge Medications Atorvastatin (Lipitor) 20 Mg Tablet 20 MG PO DAILY (Reported) Gabapentin (Gabapentin) 600 Mg Tablet 600 MG PO QID (Reported) Glimepiride (Glimepiride) 2 Mg Tablet 2 MG PO BID (Reported) Losartan Potassium (Losartan Potassium) 50 Mg Tablet 75 MG PO DAILY (Reported) Nabumetone (Nabumetone) 500 Mg Tablet 500 MG PO BID (Reported) Nortriptyline (Nortriptyline) 50 Mg Capsule 50 MG PO HS (Reported) As needed Diazepam (Diazepam) 5 Mg Tablet 5 MG PO q4-6HR PRN PRN For Anxiety (Reported) Hydrocodone-Acetaminophen 10-325 mg (Hydrocodone-Acetaminophen 10-325 mg) 1 Each Tablet 1 TABLET PO q5HR PRN PRN For Pain (Reported) Followup Plan Disposition: Home Discharge Diet: No restrictions Discharge Activity: No restrictions Follow-up Provider: Jace Tee MD Follow-up with PCP in: 1 week Time spent 40 minutes Mauricio Parnell MD July 23, 2016 12:38
--- NOTE | 2016-07-23 12:43 | NUR ---
STUDENT NURSE NOTE Pt self-reports bowel movement this AM at approximately 0930.
--- NOTE | 2016-07-23 13:20 | NUR ---
Discharge Patient discharge to home, ambulatory, accompanied by family member via a POV. Denies any nausea, pain or discomfort on discharge. Notes and instructions given and well understood by patient. All belongings were taken home with him.
[2016-07-24] MEDS ORDERED: 0.9% Sodium Chloride 1,000 ML IV SCH (07:00)
== END 2016-07-23 13:15 | disposition home or self-care (01) | DRG 282 ==
LOC: SED 07:14 → MOC 13:06
PROVIDERS: ADMIT Internal Medicine; ATTEND Internal Medicine
DX: K85.20 Alcohol induced acute pancreatitis without necrosis or infection (principal); E87.1 Hypo-osmolality and hyponatremia; K70.10 Alcoholic hepatitis without ascites; E83.42 Hypomagnesemia; I10 Essential (primary) hypertension; E11.9 Type 2 diabetes mellitus without complications; G89.29 Other chronic pain; F10.20 Alcohol dependence, uncomplicated; F17.290 Nicotine dependence, other tobacco product, uncomplicated; E78.5 Hyperlipidemia, unspecified; Z79.84 Long term (current) use of oral hypoglycemic drugs

== ENCOUNTER 2016-07-26 17:56 | Emergency (ER) | payer OTHER ==
[~2016-07-26] VITALS: Ht 180.3 cm; Wt 111.4 kg
[~2016-07-26 17:56] MED LIST changes: +ATOR20TA PO; -COZ100 PO; +DIAZ5TAB3 PO; +GABA600T2 PO; +GLIM2TAB2 PO; -GLIP5TAB2 PO; +HYDR-3740 PO; -HYG25 PO; +LOSA50TA37 PO; +NABU500T PO; +NORT50CA PO
[2016-07-26 18:14] VITALS: BP 153/99; PULSE 110; RESP 20; O2SAT 97
[2016-07-26 18:47] LABS: BASOPHILS % (AUTO) 0.4 % (0-3); EOSINOPHILS % (AUTO) 1.1 % (0-5); MONOCYTES % (AUTO) 18.5 % (4-12); Mean Corpuscular Volume 93.4 fL (81-100); NEUTROPHILS % (AUTO) 65.6 % (40-74); Platelet Count 183 bil/L (150-400)
[2016-07-26 19:07] LABS: Magnesium 2.4 mg/dL (1.6-2.6)
[2016-07-26 20:54] VITALS: BP 146/96; PULSE 98; RESP 18; O2SAT 97
--- NOTE | 2016-07-26 22:02 | ED.REPORT ---
HPI-Abd Pain M 40 and Over Date of Service July 26, 2016 ED Provider: Dr. Woods Pt is a 45 y/o male w/ a hx of HTN, DM, chronic pain, hyperlipidemia, and recent dx and admission for pancreatitis, presenting to the ED c/o abdominal pain onset about 4 days ago. The patient was seen here at [facility] and admitted on July 21 with complaints of abdominal pain after a night of nausea and vomiting and was found to have acute pancreatitis which was thought to be alcohol induced along with hyponatremia and elevated LFTs. Abdominal CT performed during admission was remarkable for acute pancreatitis and hepatic steatosis. His bile duct was not dilated at that time. His total bilirubin was 3.8. He was discharged on July 23 and told to follow-up with his PCP. He went back to his PCP who told him that he appeared jaundiced, he provided a urine sample which was very dark yellow. He has been experiencing decreased appetite which he describes as feeling full after a couple bites of food. He is able to pass gas. He c/o associated constant 100.4 F fever, night sweats. Pt denies chills. He has never experienced pancreatitis associated with alcohol in the past. He has had nothing to drink for 6 days. For the past 8 years he drinks about 2 glasses of wine with each meal. Nursing Notes Stated Complaint: POSS PANCREATITIS Chief Complaint: Male Abdominal Pain Nursing Notes Reviewed: Yes Allergies: Coded Allergies: No Known Allergies (Unverified , 07/26/16) Scheduled Atorvastatin (Lipitor) 20 Mg Tablet 20 MG PO DAILY Gabapentin (Gabapentin) 600 Mg Tablet 600 MG PO QID Glimepiride (Glimepiride) 2 Mg Tablet 2 MG PO BID Losartan Potassium (Losartan Potassium) 50 Mg Tablet 75 MG PO DAILY Nabumetone (Nabumetone) 500 Mg Tablet 500 MG PO BID Nortriptyline (Nortriptyline) 50 Mg Capsule 50 MG PO HS Scheduled PRN Diazepam (Diazepam) 5 Mg Tablet 5 MG PO q4-6HR PRN PRN For Anxiety Hydrocodone-Acetaminophen 10-325 mg (Hydrocodone-Acetaminophen 10-325 mg) 1 Each Tablet 1 TABLET PO q5HR PRN PRN For Pain General Time Seen by MD: 22:01 Chief Complaint Abdominal pain Hx Obtained From: Patient Arrived By: Walk-in Sudden in Onset?: No Onset Occurred: 4 days ago Symptom Duration: Since onset Progression since Onset: Constant Location: : Abdomen upper Quality: Painful Severity: Current: Moderate Severity: Maximum: Moderate Recent Healthcare: Recent doctor visit, Recent testing, Previous diagnosis, Prior workup Past Medical History Past Medical History Hyperlipidemia Hypertension peripheral neuropathy chronic back pain Diabetes Past Surgical History 4 back surgeries Smoking History Current Every Day Smoker Social History Alcohol Use: 1-3 per day Other Social History: Good social support, , Local resident Ambulatory Status Independent Review of Systems Constitutional: Denies: Chills, Fever GI: Reports: Abdominal pain, Nausea, Vomiting, Denies: Bloody/tarry stool, Constipation, Diarrhea, Hematemesis, Hematochezia Complete sys rev & neg: except as marked. Physical Exam Initial Vital Signs Vital Signs (First) Date Time Temp Pulse Resp B/P Pulse Ox O2 Delivery O2 Flow Rate FiO2 07/26/16 18:14 37.3 110 20 153/99 97 Room Air Initial VS: Reviewed, Vital signs abnormal ENT: Mucous membranes moist, Conjunctiva normal, No scleral icterus Neck: Supple, Full range of motion Neurologic: Alert, Oriented, Nonfocal Psychiatric: Mood/affect normal, Behavior normal, Normal thought content General/Constitutional: Awake, Alert, No acute distress, Cooperative, Not toxic appearing Distress / Hydration: Positive: Dehydration moderate Appearance / Presentation: Positive: Icteric Respiratory / Chest: Breath sounds NL, Breath sounds = bilat, No respiratory distress, No rales, No rhonchi, No wheezing, No retractions, No stridor Cardiovascular: Heart rate NL, Regular rhythm, Heart sounds NL, No gallop, No murmurs, No rubs, Peripheral circulation NL Abdomen: Atraumatic, Soft, No guarding, No rebound, BS normoactive Tenderness/Guarding/Rebound: Positive: Tender diffuse (mild) Bowel Sounds / Distention: Positive: Distention mild Back: Full range of motion, Painless range of motion Head / Eyes: Atraumatic, Normocephalic, PERRL Conjunctiva / Sclera: Positive: Icteric Skin: Atraumatic, Warm, Dry, Intact Color / Condition: Positive: Jaundice present Interpretation & Diagnostics Lab Results Interpretation Result Diagram: 07/26/16 1835 07/26/16 1835 Test 07/26/16 18:35 07/26/16 22:05 White Blood Count 11.1th/mm3 (3.8-10.1) Red Blood Count 4.58mil/mm3 (4.40-5.80) Hemoglobin 15.1g/dL (13.8-17.2) Hematocrit 42.8% (41.0-50.0) Mean Corpuscular Volume 93.4fL (81-100) Mean Corpuscular Hemoglobin 33.0pg (27.0-35.0) Mean Corpuscular Hemoglobin Concent 35.3% (32.0-37.0) Red Cell Distribution Width 13.1% (12.3-15.4) Platelet Count 183bil/L (150-400) Neutrophils (%) (Auto) 65.6% (40-74) Lymphocytes (%) (Auto) 13.2% (14-46) Monocytes (%) (Auto) 18.5% (4-12) Eosinophils (%) (Auto) 1.1% (0-5) Basophils (%) (Auto) 0.4% (0-3) Sodium Level 132mEq/L (134-144) Potassium Level 3.9mEq/L (3.5-5.2) Chloride Level 89mEq/L (97-108) Carbon Dioxide Level 24mmol/L (18-29) Blood Urea Nitrogen 16mg/dL (6-24) Creatinine 0.82mg/dL (0.76-1.27) Estimat Glomerular Filtration Rate 109mL/min (>59) Glucose Level 150mg/dL (60-99) Lactic Acid Level 1.0mmol/L (0.4-2.0) Calcium Level 10.0mg/dL (8.5-10.1) Magnesium Level 2.4mg/dL (1.6-2.6) Total Bilirubin 7.5mg/dL (0.0-1.2) Aspartate Amino Transf (AST/SGOT) 141U/L (0-50) Alanine Aminotransferase (ALT/SGPT) 102U/L (0-44) Alkaline Phosphatase 102U/L (25-150) Total Protein 8.5g/dL (6.4-8.4) Albumin 3.6g/dL (3.4-5.0) Lipase 143U/L (13-60) Hold Urine Received (Received) US Focused Biliary Preliminary report: Enlarged fatty liver at 24 cm Gallbladder filled with sludge, distended at 13.4 cm Common bile duct is enlarged at 9.7 mm Final report: Gallbladder sludge. Hepatomegaly. Hepatic steatosis, statistically, versus other hepatocellular process. Common bile duct dilation. Pancreas not optimally seen. Transmitted to the ED by Louisa Magana MD Exam Performed by: Allied health pract Exam Interpreted by: Allied health pract Re-Eval/Medical Decision Med Decision/Clinical Course 45-year-old with pancreatitis returns now with overdose or dilatation and worsening jaundice. Ultrasound reveals biliary sludge, 9 mm common bile duct, and no culprit Stone immediately seen. Head of the pancreas is poorly visualized. He will require ERCP, which is not available here. He is transferred to [facility] for evaluation and management. Source of Hx: Old records Time of Eval: 22:20 Re-Evaluation/Progress Note: Pt rechecked. Informed pt of need for admission for management of pancreatitis. Pt understands and agrees with plan for admission. All questions addressed. Time of Eval: 23:29 Re-Evaluation/Progress Note: Pt rechecked. He is much more comfortable now. Informed pt of need for transfer for ERCP. He agrees with plan for transfer. Consultation #1: Referral / Consult Name: Mitchel Vargas MD Call Returned at: 23:20 Schedule Maker: Agrees with eval, Agrees with plan Note: Consulted GI. Given that he does not perform ERCPs, he recommends transfer. Meets criteria for ERCP. Consultation #2: Call Returned at: 23:18 Note: Case discussed with GI at [facility] in [place]. Does not accept transfer, states it is too complicated. Counseled Regarding: Diagnosis, Lab results, Need for transfer Discharge & Departure Primary Impression: Pancreatitis Chronicity: acute Pancreatitis type: biliary Acute pancreatitis complication: unspecified Qualified Code: K85.10 - Biliary acute pancreatitis without necrosis or infection Additional Impressions: Jaundice Common bile duct dilatation Disposition: Transfer, Acute Care Facility Transfer Requested at: 01:32 Receiving Hospital: [facility] Transfer Accepted: Yes Transfer Accepted at: 01:32 Transfer Reason: Higher level of care Spoke with: Specialty physician (GI) Patient Status: Stable Patient Informed: Yes Vital Signs - All Vital Signs Date Time Temp Pulse Resp B/P Pulse Ox O2 Delivery O2 Flow Rate FiO2 07/26/16 20:54 98 18 146/96 97 07/26/16 18:14 37.3 110 20 153/99 97 Room Air )( All Prior VS Reviewed: Yes Condition: Stable Referrals: Jace Tee MD (PCP) Scribe Attestation Portions of this note were transcribed by Nba Palm. I, Dr. Hampton personally performed the history, physical exam and medical decision-making; I reviewed and confirmed the accuracy of the information in the transcribed note. Signed by Charlotte Beard, 07/26/16 - [id number] copies to: Jace Tee MD, Christopher W MD July 26, 2016 22:02 NBA PALM July 26, 2016 22:09
[2016-07-26] MEDS ORDERED: Ondansetron 2 mg/mL 2 mL Inj IVPUSH ONE (22:15)
[2016-07-26] MEDS ORDERED: 0.9% Sodium Chloride 1,000 ML IV SCH (22:15)
[2016-07-26] MEDS ORDERED: Pantoprazole 4 mg/mL 10 mL Inj IVPUSH ONE (22:15)
[2016-07-26] MEDS: HYDROmorphone 1 mg/mL Inj IVPUSH PRN ×2 (22:25→23:25)
[2016-07-26 23:38] VITALS: BP 140/92; PULSE 90; RESP 16; O2SAT 94
[2016-07-27 02:42] VITALS: BP 148/96; PULSE 84; RESP 16; O2SAT 97
[2016-07-27 02:48] VITALS: BP 148/96; PULSE 82; RESP 16; O2SAT 97
[2016-07-27] MEDS ORDERED: HYDROmorphone 1 mg/mL Inj IVPUSH ONE (03:20)
--- NOTE | 2016-07-27 08:35 | DRSVH ---
PROCEDURE: US ABDOMEN, LIMITED ([id number]) INDICATIONS: jaundice, pancreatitis TECHNIQUE: Real-time focused scanning was performed of the abdomen, with image documentation. COMPARISON: [facility], CT, CT ABD PELVIS W CON, 07/21/2016, 10:15. FINDINGS: Liver is diffusely increased in echogenicity. No focal hepatic abnormalities identified. Normal hepatic size. Gallbladder sludge present otherwise no gallstone seen. No wall thickening. Dilatation of the common bile that measuring up to 9.7 mm. Pancreas not well-seen. IMPRESSION: 1. Increased hepatic echogenicity noted likely related to fatty infiltration of the liver but other s ources of hepatocellular disease cannot be excluded. Recommend clinical correlation. 2. Gallbladder sludge. 3. Dilatation of the extrahepatic bile duct. Dictated by: Den Sanon [facility] Interpreted: Radha Chan MD on 07/27/2016 at 8:33 Transcribed by: CECILE on 07/27/2016 at 8:35 Approved by: Radha Chan MD, PhD on 07/27/2016 at 9:39
== END 2016-07-27 03:23 | disposition short-term general hospital (02) ==
LOC: SED 17:56 → OSC 23:14 → UNDOADMIN 23:14 → SED 07-27 03:23
DX: K85.10 Biliary acute pancreatitis without necrosis or infection (principal); R17 Unspecified jaundice; K83.8 Other specified diseases of biliary tract; I10 Essential (primary) hypertension; E11.9 Type 2 diabetes mellitus without complications; E78.5 Hyperlipidemia, unspecified; M54.9 Dorsalgia, unspecified; G89.29 Other chronic pain; F17.200 Nicotine dependence, unspecified, uncomplicated
CPT/HCPCS: 36415; 76705; 80053; 83605; 83690; 83735; 85025; 87040; 96361; 96374; 96375; 96376; 99285; J1170; J2405; J7030